=== PATIENT | male | born 1975 | race Caucasian/White ===

== ENCOUNTER 2018-07-20 22:35 | Inpatient (IN) | payer OTHER ==
[2018-07-20] MEDS ORDERED: ONDANSETRON 4 MG/2 ML VIAL IVPUSH ONE (23:18)
[2018-07-20] MEDS ORDERED: SODIUM CHLORIDE 0.9% 1000 ML INFUS.BAG IV ONE (23:18)
[2018-07-20] MEDS ORDERED: ACETAMINOPHEN 1000 MG/100 ML VIAL (NON FORMULARY) IVPB ONE (23:19)
[2018-07-20] MEDS ORDERED: ACETAMINOPHEN INJECTION 100 ML IVPB ONE (23:35)
[2018-07-20] MEDS ORDERED: ONDANSETRON 4 MG/2 ML VIAL ONE (23:36)
--- NOTE | 2018-07-20 23:37 | PDOC ---
History of Present Illness - General Chief Complaint: Pain, Acute Stated Complaint: ABDOMINAL PAIN, NAUSEA Time Seen by Provider: 07/20/18 23:12 History Source: Patient Exam Limitations: No Limitations - History of Present Illness Initial Comments: 07/20/18 23:32 The patient is a 42M with no PMH (does not follow with PCP) who presents to the ER with complaints of abdominal pain. The pt states that he was sleeping when he was woken up by a sudden onset sharp, RUQ and epigastric abdominal pain which is constant and worsening, not associated with any exacerbating or alleviating factors. The pt states that the pain radiates to his back and is a 10/10. He also admits to nausea and chills. He denies fevers, CP, SOB, hematuria , dysuria, and discharge. Past History - Past Medical History Allergies/Adverse Reactions: Allergies Allergy/AdvReac Type Severity Reaction Status Date / Time No Known Allergies Allergy Verified 07/20/18 22:53 Home Medications: Ambulatory Orders Oxycodone HCl/Acetaminophen [Percocet 5-325 mg Tablet] 1 combo PO Q4H PRN #0 tablet 12/15/13 COPD: No - Immunization History Immunization Up to Date: Yes - Suicide/Smoking/Psychosocial Hx Smoking History: Never smoked Hx Alcohol Use: No Drug/Substance Use Hx: No Hx Substance Use Treatment: No Review of Systems - Review of Systems Able to Perform ROS?: Yes Comments:: 07/20/18 23:33 GENERAL/CONSTITUTIONAL: Positive for chills. No fever. No weakness. HEAD, EYES, EARS, NOSE AND THROAT: No change in vision. No ear pain or discharge. No sore throat. CARDIOVASCULAR: No chest pain, palpitations, or lightheadedness. RESPIRATORY: No cough, wheezing, shortness of breath, or hemoptysis. GASTROINTESTINAL: Positive for nausea and abdominal pain. No vomiting, diarrhea , or constipation. GENITOURINARY: No dysuria, frequency, hematuria, or change in urination. MUSCULOSKELETAL: No joint or muscle swelling or pain. No neck or back pain. SKIN: No rash or lesions. NEUROLOGIC: No headache, numbness, tingling, focal weakness, loss of consciousness, or change in strength/sensation. Is the patient limited Polish proficient: No *Physical Exam - Vital Signs Last Vital Signs Temp Pulse Resp BP Pulse Ox 98.2 F 73 16 146/90 99 07/20/18 22:53 07/20/18 22:53 07/20/18 22:53 07/20/18 22:53 07/20/18 22:53 - Physical Exam Comments: 07/20/18 23:34 GENERAL: Well developed, well nourished. Awake and alert. No acute distress. HEENT: Normocephalic, atraumatic. Hearing grossly normal. Moist mucous membranes. PERRLA, EOMI. No conjunctival pallor. Sclera are non-icteric. NECK: Supple. Full ROM. CARDIOVASCULAR: Regular rate and rhythm. No murmurs, rubs, or gallops. PULMONARY: No evidence of respiratory distress. Lungs clear to auscultation bilaterally. No wheezing, rales or rhonchi. ABDOMINAL: Soft. TTP over RUQ and epigastrium. +De Leon's sign. Non-distended. No rebound or guarding. GENITOURINARY: No CVA tenderness bilaterally. MUSCULOSKELETAL: Normal range of motion at all joints. No bony deformities or tenderness. EXTREMITIES: No cyanosis. No clubbing. No edema. No calf tenderness or swelling. SKIN: Warm and dry. Normal capillary refill. No rashes. No jaundice. NEUROLOGICAL: Alert, awake, appropriate. Cranial nerves 2-12 grossly intact. Normal speech. Gait is normal without ataxia. PSYCHIATRIC: Cooperative. Good eye contact. Appropriate mood and affect. ED Treatment Course - LABORATORY CBC & Chemistry Diagram: 07/20/18 23:20 07/20/18 23:20 - RADIOLOGY Radiology Studies Ordered: Category Date Time Status CHEST X-RAY PORTABLE* [RAD] Stat Radiology 07/20/18 23:19 Ordered ABDOMEN US -LIMITED [US] Stat Ultrasound 07/20/18 23:20 Ordered Medical Decision Making - Medical Decision Making 07/20/18 23:35 The patient is a 42M with no PMH who presents with acute onset RUQ abdominal pain radiating to his back concerning for pancreatitis, cholecystitis, and ascending cholangitis. Labs sent and RUQ U/S ordered. Giving pain and nausea treatment. Pt well appearing but uncomfortable. Will monitor closely. 07/21/18 01:23 Pt did not tolerate PO challenge and requires more pain medication. US shows gallbladder wall thickening to 4mm with cholelithiasis. 07/21/18 03:59 Case d/w Dr. Aly who will see the patient in the morning. Pt endorsed to Dr. Triana for admission under Dr. Bowles. *DC/Admit/Observation/Transfer Diagnosis at time of Disposition: Cholelithiasis Qualifiers: Cholelithiasis location: other site Biliary obstruction: without biliary obstruction Qualified Code(s): K80.80 - Other cholelithiasis without obstruction - Discharge Dispostion Condition at time of disposition: Guarded Decision to Admit order: Yes - Referrals - Patient Instructions - Post Discharge Activity
[2018-07-20 23:42] LABS: BASO % 0.3 % (0-2.0); EOS % 0.9 % (0-4.5); HEMATOCRIT 40.8 % (35.4-49); HEMOGLOBIN 14.2 GM/dL (11.7-16.9); LYMPH % 16.3 % (8-40); MCH 32.6 pg (25.7-33.7); MCHC 34.9 g/dl (32.0-35.9); MEAN CELL VOLUME 93.2 fl (80-96); MEAN PLT VOLUME 8.2 fl (7.5-11.1); MONO % 4.9 % (3.8-10.2); NEUT % 77.6 % (42.8-82.8); PLATELET COUNT 245 K/MM3 (134-434); RBC 4.37 M/mm3 (4.00-5.60); RDW 12.4 % (11.9-15.9); WHITE BLOOD COUNT 7.3 K/mm3 (4.0-10.0)
[2018-07-20 23:53] LABS: URINE APPEARANCE CLEAR; URINE BILIRUBIN NEGATIVE (<2.0 mg/dL); URINE COLOR LTYELLOW; URINE GLUCOSE (UA) 3+ (NEGATIVE); URINE KETONE NEGATIVE (NEGATIVE); URINE LEUK ESTERASE NEGATIVE (NEGATIVE); URINE NITRITE NEGATIVE (NEGATIVE); URINE PROTEIN NEGATIVE (NEGATIVE); URINE UROBILINOGEN NEGATIVE mg/dL (0.2-1.0)
--- NOTE | 2018-07-20 23:53 | PDOC ---
Attending Attestation - HPI HPI: 07/21/18 00:39 The patient is a 42 year old male, with no significant past medical history, who presents to the emergency department with, sudden onset sharp, right upper quadrant pain radiating to his back. He further describes it as constant and 10/ 10. <Jennifer Perkins - Last Filed: 07/21/18 00:39> - Resident Resident Name: Hamilton Dean - ED Attending Attestation I have performed the following: I have examined & evaluated the patient, The case was reviewed & discussed with the resident, I agree w/resident's findings & plan - Physicial Exam PE: 07/25/18 19:56 Agree with resident exam. - Medical Decision Making 07/21/18 00:14 Pt comes with abd pain that woke him Pain is right sided. Pt has a + escobar's sign on exam, but he is afebrile and he has normal labs, and normal lipase and LFTs. He has normal urine. He has no hx of DM, however, his glc id [id number] and he has 3+ glc in his urine. 07/21/18 00:18 CXR normal <Lisette Canada - Last Filed: 07/25/18 19:57> Attestations - Attestations 07/21/18 00:40 Documentation prepared by Jennifer Perkins, acting as medical records supervisor for Lisette Canada MD. <Jennifer Perkins - Last Filed: 07/21/18 00:39>
[2018-07-20 23:54] LABS: INR 1.02 (0.83-1.09)
[2018-07-21 00:06] LABS: ALK PHOS 74 U/L (45-117); ANION GAP 7 MMOL/L (8-16); BILIRUBIN,TOTAL 0.2 mg/dL (0.2-1); BLOOD UREA NITROGEN 19 mg/dL (7-18); CALCIUM 8.8 mg/dL (8.5-10.1); CHLORIDE 106 mmol/L (98-107); CO2 27 mmol/L (21-32); CREATININE 0.8 mg/dL (0.55-1.3); GLUCOSE,RANDOM 154 mg/dL (74-106); LIPASE 168 U/L (73-393); POTASSIUM 3.7 mmol/L (3.5-5.1); SGOT/AST 16 U/L (15-37); SGPT/ALT 24 U/L (13-61); SODIUM 140 mmol/L (136-145); TOT PROT 7.4 g/dl (6.4-8.2)
[2018-07-21] MEDS ORDERED: ONDANSETRON 4 MG/2 ML VIAL IVPUSH ONE (02:44)
[2018-07-21] MEDS ORDERED: morphine CARPU-JECT 4 MG/1 ML DISP.SYRIN IVPUSH ONE (02:45)
[2018-07-21] MEDS ORDERED: morphine SULFATE 4 MG/ML VIAL ONE (02:50)
[2018-07-21] MEDS ORDERED: ONDANSETRON 4 MG/2 ML VIAL ONE (02:51)
[2018-07-21] MEDS ORDERED: SODIUM CHLORIDE 1,000 ML IV SCH (03:00)
[2018-07-21] MEDS ORDERED: ONDANSETRON 4 MG/2 ML VIAL IVPUSH PRN (04:49)
[2018-07-21] MEDS ORDERED: morphine SULFATE 4 MG/ML VIAL IVPUSH PRN (04:49)
--- NOTE | 2018-07-21 04:55 | PN ---
Teaching Attending Note Name of Resident: Marcia Galloway ATTENDING PHYSICIAN STATEMENT I saw and evaluated the patient. I reviewed the resident's note and discussed the case with the resident. I agree with the resident's findings and plan as documented. SUBJECTIVE: Mr. Martínez is a 42 y/o Male with no PMH aside from appendectomy and hernia repair who presents to the ER for 1 day or worsening abdominal pain. Nothing is making it better or worse. He had it today after a large meal, R- sided prediliction. No constitutional sx. He tried to go to sleep but the pain progresed so he came to the ER. He had similar pain several years ago but didn' t get it worked up and he had no explanation. No wbc, no fever, hemodynamics stable. Resting comfortably in bed after being given morphine. ER phoned rakesh who will see him in the morning. Will monitor him on med surg floor with surgical consult. 10 sys ROS done and negative aside from HPI PMH and PSH reviewed and are per chart FH asked and noncontributory Socially he is employed and has no known disability and denies tobacco, drugs, or alcohol. OBJECTIVE: VSS; labs and imaging reviewed NAD AAOx3 resting comfortbaly in bed RRR s1/2 no mgr Slightly tender but is post morphine; no escobar's at this time, nondistende, no organomegaly Lungs CTAB without focal consolidation CN2-12 grossly intact without any FNDs US reviewed; final report pending. Prelim read shows normal CBD, 4mm wall, no jackeline cholecystitis ASSESSMENT AND PLAN: Mr. Rao is a 42 y/o HM presenting with abdominal pain after a fatty meal that is suspicious for symptomatic cholelithiasis. Surgery will see him in the morning. 1) Sympomatic cholelithiaisis -No fever or WBC; no pericholecystic fluid seen on prelim scan so will hold off on abx. Wall thickening noted. -Surgical consult in AM -Morphine and Zofran PRN, monitor on med surg floor -LR@@100 for maintenance while NPO. -Appreciate surgical consult; medicine will follow. 2) Glucosuria with mild hyperglycemia -Suspicious for potential underlying DM -Check A1c and followup with PCP FENA -LR@100 -Monitor/replete PRN -NPO for now -As tolerated Full Code
--- NOTE | 2018-07-21 05:07 | HP ---
CHIEF COMPLAINT: RUQ pain PCP: none HISTORY OF PRESENT ILLNESS: Patient is a 42 y/o male with no past medical history and surgical history pertinent for appendectomy and hernia repair who presents with RUQ pain. He states the pain began midday yesterday. He described the pain as sharp and radiating to his back. He states he felt short of breath due to the pain. He has only had this pain once in the past about three months ago and does not note it with any food or alcohol use. Patient ate a spicy meal before the pain on Saturday. He reports he took tylenol at home, but it did not help the pain. Patient denies alcohol use. Patient states he is nauseous but did not have any episodes of vomiting. Patient denies diarrhea, constipation, dysuria, fever, chills,. or blurry vision. He denies any recent sick contacts. ER course was notable for: (1) morphine (2) (3) Recent Travel: denies PAST MEDICAL HISTORY: denies PAST SURGICAL HISTORY: appendectomy (2013), hernia repair Social History: Smoking: denies Alcohol:denies Drugs: Family History: Allergies No Known Allergies Allergy (Verified 07/20/18 22:53) HOME MEDICATIONS: REVIEW OF SYSTEMS CONSTITUTIONAL: Absent: fever, chills, diaphoresis, generalized weakness, malaise, loss of appetite, weight change HEENT: Absent: rhinorrhea, nasal congestion, throat pain, throat swelling, difficulty swallowing, mouth swelling, ear pain, eye pain, visual changes CARDIOVASCULAR: chest pain ( described as refereed pain) Absent: , syncope, palpitations, irregular heart rate, lightheadedness, peripheral edema RESPIRATORY: shortness of breath Absent: cough, dyspnea with exertion, orthopnea, wheezing, stridor, hemoptysis GASTROINTESTINAL: abdominal pain, nausea, Absent: abdominal distension, vomiting, diarrhea, constipation, melena, hematochezia GENITOURINARY: Absent: dysuria, frequency, urgency, hesitancy, hematuria, flank pain, genital pain MUSCULOSKELETAL: Absent: myalgia, arthralgia, joint swelling, back pain, neck pain SKIN: Absent: rash, itching, pallor HEMATOLOGIC/IMMUNOLOGIC: Absent: easy bleeding, easy bruising, lymphadenopathy, frequent infections ENDOCRINE: Absent: unexplained weight gain, unexplained weight loss, heat intolerance, cold intolerance NEUROLOGIC: Absent: headache, focal weakness or paresthesias, dizziness, unsteady gait, seizure, mental status changes, bladder or bowel incontinence PSYCHIATRIC: Absent: anxiety, depression, suicidal or homicidal ideation, hallucinations. PHYSICAL EXAMINATION Vital Signs - 24 hr 07/20/18 22:53 Temperature 98.2 F Pulse Rate 73 Respiratory 16 Rate Blood Pressure 146/90 O2 Sat by Pulse 99 Oximetry (%) GENERAL: Awake, alert, and fully oriented, in no acute distress. HEAD: Normal with no signs of trauma. EYES: Pupils equal EARS, NOSE, THROAT: Moist mucous membranes. LUNGS: Breath sounds equal, clear to auscultation bilaterally. No wheezes, and no crackles. No accessory muscle use. HEART: Regular rate and rhythm, normal S1 and S2 without murmur, rub or gallop. ABDOMEN: tenderness at RUQ, positive murphys sign, positive rebound tenderness MUSCULOSKELETAL: Normal range of motion at all joints. LOWER EXTREMITIES: 2+ pulses, warm, well-perfused. No calf tenderness. No peripheral edema. NEUROLOGICAL: Cranial nerves II-XII intact. Normal speech. PSYCHIATRIC: Cooperative. Good eye contact. Appropriate mood and affect. SKIN: Warm, dry, normal turgor, no rashes or lesions noted, normal capillary refill. Laboratory Results - last 24 hr CBC, BMP 07/20/18 23:20 07/20/18 23:20 Urine Test Results Urine Color Ltyellow 07/20/18 23:35 Urine Appearance Clear 07/20/18 23:35 Urine pH 6.0 (5.0-8.0) 07/20/18 23:35 Ur Specific [place] 1.021 (1.010-1.035) 07/20/18 23:35 Urine Protein Negative (NEGATIVE) 07/20/18 23:35 Urine Glucose (UA) 3+ (NEGATIVE) H 07/20/18 23:35 Urine Ketones Negative (NEGATIVE) 07/20/18 23:35 Urine Blood Negative (NEGATIVE) 07/20/18 23:35 Urine Nitrite Negative (NEGATIVE) 07/20/18 23:35 Urine Bilirubin Negative (<2.0 mg/dL) 07/20/18 23:35 Ur Leukocyte Esterase Negative (NEGATIVE) 07/20/18 23:35 ASSESSMENT/PLAN: Patient is a 42 y/o male with no past medical history and surgical history pertinent for appendectomy and hernia repair who presents with cholelithasis. #acute cholelithiasis - US: cholelithias, thickened gallbladder 4 mm, no evidence of pericholecystic fluid - ED spoke with Dr. Aly, she will see patient in the morning and determine management - patient NPO - LR @ 100 - morphine 4mg q4prn - zofran 4 mg q6h prn ( QTC: 438) #glycosuria - no history of DM - f/u A1C - f/u with PCP outpatient as appropriate Visit type - Emergency Visit Emergency Visit: Yes ED Registration Date: 07/21/18 Care time: The patient presented to the Emergency Department on the above date and was hospitalized for further evaluation of their emergent condition. - New Patient This patient is new to me today: Yes Date on this admission: 07/21/18 - Critical Care Critical Care patient: No
[2018-07-21] MEDS: LACTATED RINGERS SOLUTION 1,000 ML IV SCH (05:50)
--- NOTE | 2018-07-21 09:49 | PN ---
Physical Exam: SUBJECTIVE: Patient seen and examined in the ER- no acute events overnight. states that he is still having some pain states its a 3/10 and is having some slight nausea but no vomiting. he denies any fevers or chills. Dr. Aly will be seeing him this am to evaluate. OBJECTIVE: Vital Signs Period Temp Pulse Resp BP Sys/Tariq Pulse Ox Last 24 Hr 98.2 F-98.2 F 63-73 16-18 119-146/66-90 99-100 GENERAL: The patient is awake, alert, and fully oriented, in no acute distress. EYES:no scleral icterus NECK: no JVD, no lymphadenopathy LUNGS: Breath sounds equal, clear to auscultation bilaterally, no wheezes, no crackles, no accessory muscle use. HEART: Regular rate and rhythm, S1, S2 without murmur, rub or gallop. ABDOMEN: Soft, + RUQ tenderness, non-distended EXTREMITIES: 2+ pulses, warm, well-perfused, no edema. PSYCH: Normal mood, normal affect. SKIN: Warm, dry, normal turgor, no rashes or lesions noted Laboratory Results - last 24 hr 07/20/18 07/20/18 07/20/18 23:20 23:20 23:20 WBC 7.3 RBC 4.37 Hgb 14.2 Hct 40.8 MCV 93.2 MCH 32.6 MCHC 34.9 RDW 12.4 Plt Count 245 D MPV 8.2 Absolute Neuts (auto) 5.7 Neutrophils % 77.6 Lymphocytes % 16.3 D Monocytes % 4.9 Eosinophils % 0.9 D Basophils % 0.3 Nucleated RBC % 0 PT with INR 12.00 INR 1.02 Sodium 140 Potassium 3.7 Chloride 106 Carbon Dioxide 27 Anion Gap 7 L BUN 19 H Creatinine 0.8 Creat Clearance w eGFR > 60 Random Glucose 154 H Hemoglobin A1c % Calcium 8.8 Total Bilirubin 0.2 AST 16 ALT 24 Alkaline Phosphatase 74 Creatine Kinase 173 Creatine Kinase Index 0.8 CK-MB (CK-2) 1.5 Troponin I < 0.02 Total Protein 7.4 Albumin 4.0 Lipase 168 Urine Color Urine Appearance Urine pH Ur Specific [place] Urine Protein Urine Glucose (UA) Urine Ketones Urine Blood Urine Nitrite Urine Bilirubin Urine Urobilinogen Ur Leukocyte Esterase Blood Type Antibody Screen 07/20/18 07/20/18 07/21/18 23:20 23:35 07:30 WBC RBC Hgb Hct MCV MCH MCHC RDW Plt Count MPV Absolute Neuts (auto) Neutrophils % Lymphocytes % Monocytes % Eosinophils % Basophils % Nucleated RBC % PT with INR INR Sodium Potassium Chloride Carbon Dioxide Anion Gap BUN Creatinine Creat Clearance w eGFR Random Glucose Hemoglobin A1c % 5.9 Calcium Total Bilirubin AST ALT Alkaline Phosphatase Creatine Kinase Creatine Kinase Index CK-MB (CK-2) Troponin I Total Protein Albumin Lipase Urine Color Ltyellow Urine Appearance Clear Urine pH 6.0 Ur Specific [place] 1.021 Urine Protein Negative Urine Glucose (UA) 3+ H Urine Ketones Negative Urine Blood Negative Urine Nitrite Negative Urine Bilirubin Negative Urine Urobilinogen Negative Ur Leukocyte Esterase Negative Blood Type O POSITIVE Antibody Screen Negative 07/21/18 07:30 WBC RBC Hgb Hct MCV MCH MCHC RDW Plt Count MPV Absolute Neuts (auto) Neutrophils % Lymphocytes % Monocytes % Eosinophils % Basophils % Nucleated RBC % PT with INR INR Sodium Potassium Chloride Carbon Dioxide Anion Gap BUN Creatinine Creat Clearance w eGFR Random Glucose Hemoglobin A1c % Calcium Total Bilirubin AST ALT Alkaline Phosphatase Creatine Kinase Creatine Kinase Index CK-MB (CK-2) Troponin I Total Protein Albumin Lipase Urine Color Urine Appearance Urine pH Ur Specific [place] Urine Protein Urine Glucose (UA) Urine Ketones Urine Blood Urine Nitrite Urine Bilirubin Urine Urobilinogen Ur Leukocyte Esterase Blood Type O POSITIVE Antibody Screen Negative Active Medications Generic Name Dose Route Start Last Admin Trade Name Freq PRN Reason Stop Dose Admin Sodium Chloride 1,000 mls @ 150 mls/hr 07/21/18 03:00 07/21/18 03:02 Normal Saline - IV 150 mls/hr ASDIR DELIA Administration Lactated Ringer's 1,000 mls @ 100 mls/hr 07/21/18 05:00 07/21/18 05:50 Lactated Ringers Solution IV 100 mls/hr ASDIR DELIA Administration Morphine Sulfate 4 mg 07/21/18 04:49 Morphine Sulfate IVPUSH Q4H PRN PAIN LEVEL 7 - 10 Ondansetron HCl 4 mg 07/21/18 04:49 Zofran Injection IVPUSH Q6H PRN NAUSEA ASSESSMENT/PLAN: Patient is a 42 y/o male with no past medical history and surgical history pertinent for appendectomy and hernia repair who presents with cholelithiasis #acute cholelithiasis - US: cholelithias, thickened gallbladder 4 mm, no evidence of pericholecystic fluid - patient going for cholecystectomy today -f/u surgery recs - patient NPO for potential procedure - morphine 4mg q4prn - zofran 4 mg q6h prn #glycosuria - no history of DM - HBA - f/u with PCP outpatient as appropriate F/E/N LR @100mls/hr replete electrolytes when needed NPO PPX: SCD's Problem List - Problems (1) Cholelithiasis Code(s): K80.20 - CALCULUS OF GALLBLADDER W/O CHOLECYSTITIS W/O OBSTRUCTION Qualifiers: Cholelithiasis location: other site Biliary obstruction: without biliary obstruction Qualified Code(s): K80.80 - Other cholelithiasis without obstruction Visit type - Emergency Visit Emergency Visit: Yes ED Registration Date: 07/21/18 Care time: The patient presented to the Emergency Department on the above date and was hospitalized for further evaluation of their emergent condition. - New Patient This patient is new to me today: Yes Date on this admission: 07/21/18 - Critical Care Critical Care patient: No
--- NOTE | 2018-07-21 10:28 | EKG ---
Test Reason : Blood Pressure : / mmHG Vent. Rate : 072 BPM Atrial Rate : 072 BPM P-R Int : 162 ms QRS Dur : 100 ms QT Int : 400 ms P-R-T Axes : 027 026 011 degrees QTc Int : 438 ms NORMAL SINUS RHYTHM NORMAL ECG NO PREVIOUS ECGS AVAILABLE Confirmed by BRITANY ANGEL MD ([id number]) on 07/21/2018 10:28:12 AM Referred By: Confirmed By:BRITANY ANGEL MD
[2018-07-21 10:59] LABS: HEMATOCRIT 38.4 % (35.4-49); HEMOGLOBIN 13.3 GM/dL (11.7-16.9); LYMPH % 21.3 % (8-40); MCH 32.1 pg (25.7-33.7); MCHC 34.6 g/dl (32.0-35.9); MEAN CELL VOLUME 92.8 fl (80-96); MEAN PLT VOLUME 7.9 fl (7.5-11.1); NEUT % 68.3 % (42.8-82.8); PLATELET COUNT 243 K/MM3 (134-434); RBC 4.14 M/mm3 (4.00-5.60); RDW 12.4 % (11.9-15.9); WHITE BLOOD COUNT 7.7 K/mm3 (4.0-10.0)
[2018-07-21 11:00] LABS: BASO % 0.3 % (0-2.0); EOS % 0.9 % (0-4.5); MONO % 9.2 % (3.8-10.2)
[2018-07-21 11:39] LABS: ALBUMIN 3.5 g/dl (3.4-5.0); ALK PHOS 64 U/L (45-117); ANION GAP 5 MMOL/L (8-16); BILIRUBIN,TOTAL 0.4 mg/dL (0.2-1); BLOOD UREA NITROGEN 8 mg/dL (7-18); CALCIUM 8.6 mg/dL (8.5-10.1); CHLORIDE 109 mmol/L (98-107); CO2 28 mmol/L (21-32); CREATININE 0.8 mg/dL (0.55-1.3); GLUCOSE,RANDOM 92 mg/dL (74-106); LIPASE 167 U/L (73-393); POTASSIUM 3.6 mmol/L (3.5-5.1); SGOT/AST 19 U/L (15-37); SGPT/ALT 21 U/L (13-61); SODIUM 142 mmol/L (136-145); TOT PROT 6.6 g/dl (6.4-8.2)
--- NOTE | 2018-07-21 15:09 | CONSULT ---
Consult Consult Specialty:: General Surgery Referred by:: Dr. Dean Reason for Consultation:: symptomatic gallstone in neck of gallbladder - History of Present Illness Chief Complaint: RUQ pain, nausea History of Present Illness: 42yo M with no PMD, no sig PMH, s/p lap appy and left inguinal hernia repair, presented yesterday to ER with acute RUQ pain associated with nausea and constipation but no fever or chills (had mild last week with possible brief illness). He had similar pain about 3 months ago but it went away without medical attention. This time it was worse and radiated toward the back as well. He had eaten spicy, greasy food couple hours before the pain initially started, it got better, then woke him from sleep and was not relieved with Tylenol. In ER , he was afebrile, with normal wbc and LFTs, lipase, and US showed gallbladder with mild wall thickening, stone in neck, and no ductal dilation. He had initially vomited a small liquid po trial, prompting further ER workup. He has been NPO, with IVF, and was admitted to medicine. Surgery is asked to assess. He is seen in ER holding area, resting comfortably. He reports his pain is better after morphine, which made him very sleepy, though he still has a bit of tenderness in RUQ. He had been feeling like he needed to use the bathroom yesterday and was unable to have a BM, but he did have a normal one for him Saturday morning. He notes that he sometimes has to urinate again shortly after doing so, and is not sure why he keeps having to go more than once. - History Source History Provided By: Patient Limitations to Obtaining History: No Limitations - Past Medical History Cardio/Vascular: No: HTN Pulmonary: No: Asthma ENT: Yes: Allergic Rhinitis Endocrine: No: Diabetes Mellitus Additional Medical History: denies - Past Surgical History Past Surgical History: Yes: Appendectomy (laparoscopic 5 yrs ago), Hernia Repair (left inguinal 15 yrs ago) - Alcohol/Substance Use Hx Alcohol Use: Yes (occasional) History of Substance Use: reports: None - Smoking History Smoking history: Never smoked - Social History Usual Living Arrangement: With Spouse ADL: Independent Occupation: sorting farhad for distribution Home Medications - Allergies Allergies/Adverse Reactions: Allergies Allergy/AdvReac Type Severity Reaction Status Date / Time No Known Allergies Allergy Verified 07/20/18 22:53 - Home Medications Home Medications: Ambulatory Orders NK [No Known Home Medication] 07/21/18 Home Medications (free text): takes vitamins and prn tylenol Family Disease History - Family Disease History Family Disease History: Other: Father (htn), Mother (gastritis) Review of Systems - Review of Systems Constitutional: reports: Chills, Fever Eyes: reports: Other (reddened eyes). denies: Blurred Vision, Recent Change in Vision HENT: reports: Difficult Swallowing (couple weeks ago, better now), Nasal Congestion, Throat Pain Neck: denies: Swollen Glands, Tenderness Cardiovascular: denies: Chest Pain, Palpitations Respiratory: reports: SOB (occasionally when ill). denies: Cough, SOB on Exertion Gastrointestinal: reports: Abdominal Pain (with hpi), Constipation (with hpi), Nausea (with hpi). denies: Diarrhea, Vomiting Genitourinary: reports: Frequency (with some incomplete emptying?). denies: Burning, Dysuria Musculoskeletal: reports: Back Pain (from work sometimes). denies: Joint Pain, Muscle Pain Integumentary: denies: Change in Color, Rash Neurological: reports: Headache. denies: Dizziness Psychiatric: denies: Anxiety, Depression Physical Exam Vital Signs: Vital Signs Temperature 98.2 F 07/21/18 06:25 Pulse Rate 79 07/21/18 11:58 Respiratory Rate 18 07/21/18 11:58 Blood Pressure 112/70 07/21/18 11:58 O2 Sat by Pulse Oximetry (%) 98 07/21/18 11:58 Constitutional: Yes: Well Nourished, No Distress, Calm Eyes: Yes: Conjunctiva Clear, EOM Intact. No: Sclera Icterus HENT: Yes: Atraumatic, Normocephalic Neck: Yes: Supple, Trachea Midline Cardiovascular: Yes: Regular Rate and Rhythm Respiratory: Yes: Regular, CTA Bilaterally Gastrointestinal: Yes: Normal Bowel Sounds, Soft, Tenderness (RUQ no maria m/ guarding, also mild referred from LUQ), Tenderness, Epigastrium (less than RUQ) , Other (healed laparoscopic scars including LLQ, healed LIHR scar). No: Tenderness, Rebound ...Rectal Exam: Yes: Deferred Renal/: Yes: CVA Tenderness - Right (minimal). No: CVA Tenderness - Left Musculoskeletal: No: Joint Stiffness, Joint Swelling Extremities: No: Cool, Cyanosis Edema: No Peripheral Pulses WNL: Yes Integumentary: Yes: Tattoos. No: Jaundice, Rash Neurological: Yes: Alert, Oriented Psychiatric: Yes: Alert, Oriented Labs: CBC, BMP 07/21/18 10:50 07/21/18 10:50 CMP Sodium 142 mmol/L (136-145) 07/21/18 10:50 Potassium 3.6 mmol/L (3.5-5.1) 07/21/18 10:50 Chloride 109 mmol/L (98-107) H 07/21/18 10:50 Carbon Dioxide 28 mmol/L (21-32) 07/21/18 10:50 Anion Gap 5 MMOL/L (8-16) L 07/21/18 10:50 BUN 8 mg/dL (7-18) 07/21/18 10:50 Creatinine 0.8 mg/dL (0.55-1.3) 07/21/18 10:50 Creat Clearance w eGFR > 60 (>60) 07/21/18 10:50 Random Glucose 92 mg/dL (74-106) 07/21/18 10:50 Hemoglobin A1c % 5.9 % (4.2-6.3) 07/21/18 07:30 Calcium 8.6 mg/dL (8.5-10.1) 07/21/18 10:50 Total Bilirubin 0.4 mg/dL (0.2-1) 07/21/18 10:50 AST 19 U/L (15-37) 07/21/18 10:50 ALT 21 U/L (13-61) 07/21/18 10:50 Alkaline Phosphatase 64 U/L (45-117) 07/21/18 10:50 Creatine Kinase 173 IU/L (26-308) 07/20/18 23:20 Creatine Kinase Index 0.8 % (0.0-5.0) 07/20/18 23:20 CK-MB (CK-2) 1.5 ng/mL (0.5-3.6) 07/20/18 23:20 Troponin I < 0.02 ng/ml (0.00-0.05) 07/20/18 23:20 Total Protein 6.6 g/dl (6.4-8.2) 07/21/18 10:50 Albumin 3.5 g/dl (3.4-5.0) 07/21/18 10:50 Lipase 167 U/L (73-393) 07/21/18 10:50 INR, PTT INR 1.02 (0.83-1.09) 07/20/18 23:20 Urine Test Results Urine Color Ltyellow 07/20/18 23:35 Urine Appearance Clear 07/20/18 23:35 Urine pH 6.0 (5.0-8.0) 07/20/18 23:35 Ur Specific [place] 1.021 (1.010-1.035) 07/20/18 23:35 Urine Protein Negative (NEGATIVE) 07/20/18 23:35 Urine Glucose (UA) 3+ (NEGATIVE) H 07/20/18 23:35 Urine Ketones Negative (NEGATIVE) 07/20/18 23:35 Urine Blood Negative (NEGATIVE) 07/20/18 23:35 Urine Nitrite Negative (NEGATIVE) 07/20/18 23:35 Urine Bilirubin Negative (<2.0 mg/dL) 07/20/18 23:35 Ur Leukocyte Esterase Negative (NEGATIVE) 07/20/18 23:35 Imaging - Results Ultrasound: Report Reviewed, Image Reviewed (images reviewed - stone in neck of gallbladder, slightly thickened wall, no pericholecystic fluid, cbd not dilated) Problem List - Problems (1) Calculus of gallbladder without cholecystitis without obstruction Assessment/Plan: admitted to medicine NPO/IVF pain meds prn, would use nonnarcotics first line trend labs no need for antibiotics prior to OR at this time Discussed with patient risks, benefits and alternatives of laparoscopic possible open cholecystectomy, including but not limited to bleeding, infection , injury to adjacent structures, leak or injury, intraabdominal abscess, incisional hernia, need for further procedures, ; alternatives include delayed or no surgery - risks of this include recurrence of biliary colic, cholecystitis, pancreatitis, cholangitis and attendant consequences. Patient desires to proceed with operation - will take to OR for above when room available, today or tomorrow. Informed consent signed for same. Discussed with Dr. Rojas. Code(s): K80.20 - CALCULUS OF GALLBLADDER W/O CHOLECYSTITIS W/O OBSTRUCTION (2) RUQ pain Code(s): R10.11 - RIGHT UPPER QUADRANT PAIN (3) Nausea alone Code(s): R11.0 - NAUSEA
--- NOTE | 2018-07-21 17:24 | PN ---
Teaching Attending Note Name of Resident: Rachael Rojas ATTENDING PHYSICIAN STATEMENT I saw and evaluated the patient. I reviewed the resident's note and discussed the case with the resident. I agree with the resident's findings and plan as documented. SUBJECTIVE:c/o dizzyness and hunger. dnies CP SOB, fever, chills, N/V/c/D no complications with anesthesia in the past OBJECTIVE: Last Vital Signs Temp Pulse Resp BP Pulse Ox 98.2 F 68 18 125/65 98 07/21/18 06:25 07/21/18 15:58 07/21/18 15:58 07/21/18 15:58 07/21/18 15:58 General NAD CV S1 S2 RRR no murmur/rub/glalop Lungs CTA B/L no wheezing/rales/rhonchi abdomen soft +RUQ tenderness +escobar sign ASSESSMENT AND PLAN: 42yo M with no PMH presented with RUQ pain 1. Biliary colic- hemodynamically stable. NPO for laprascopic cholecystectomy. IVF, pain and nausea control. Surgery on board 2. Glucosuria- concern for DM. A1c pending 3. DVT ppx- EAM
[2018-07-21 20:00] VITALS: BMI 30.3
[2018-07-22] MEDS ORDERED: PT OWN MED DRAWER 7, Y5N ONE ×2 (05:52→18:04)
[2018-07-22] MEDS: LACTATED RINGERS SOLUTION 1,000 ML IV SCH ×3 (06:33→16:19)
[2018-07-22 07:22] LABS: HEMATOCRIT 42.1 % (35.4-49); HEMOGLOBIN 13.7 GM/dL (11.7-16.9); MCH 30.4 pg (25.7-33.7); MCHC 32.5 g/dl (32.0-35.9); MEAN CELL VOLUME 93.7 fl (80-96); MEAN PLT VOLUME 8.1 fl (7.5-11.1); PLATELET COUNT 230 K/MM3 (134-434); RDW 12.6 % (11.9-15.9); WHITE BLOOD COUNT 5.3 K/mm3 (4.0-10.0)
[2018-07-22 07:31] LABS: ANION GAP 10 MMOL/L (8-16); BLOOD UREA NITROGEN 9 mg/dL (7-18); CALCIUM 8.6 mg/dL (8.5-10.1); CHLORIDE 106 mmol/L (98-107); CO2 25 mmol/L (21-32); CREATININE 0.7 mg/dL (0.55-1.3); GLUCOSE,RANDOM 76 mg/dL (74-106); MAGNESIUM 1.9 mg/dL (1.8-2.4); PHOSPHOROUS 3.2 mg/dL (2.5-4.9); POTASSIUM 3.8 mmol/L (3.5-5.1); SODIUM 142 mmol/L (136-145)
[2018-07-22] MEDS ORDERED: ONDANSETRON 4 MG/2 ML VIAL IVPUSH PRN ×2 (10:52→12:53)
[2018-07-22] MEDS ORDERED: LACTATED RINGERS SOLUTION 1,000 ML IV SCH (11:00)
[2018-07-22] MEDS ORDERED: fentaNYL CITRATE 250 MCG/5 ML VIAL ONE (11:17)
[2018-07-22] MEDS ORDERED: PROPOFOL 20 ML ONE (11:18)
[2018-07-22] MEDS ORDERED: ROCURONIUM BROMIDE 50 MG/5 ML VIAL ONE (11:18)
[2018-07-22] MEDS ORDERED: ceFAZolin SODIUM 1 GM VIAL ONE (11:28)
[2018-07-22] MEDS ORDERED: cefOXitin SODIUM 1 GM VIAL (RESTRICTED TO ID) IVPB ONE (11:30)
[2018-07-22] MEDS ORDERED: CEFOXITIN SODIUM 2 GM IVPB ONE (11:32)
[2018-07-22] MEDS ORDERED: BUPIVACAINE HCL/PF 0.5% (5MG/ML) 10 ML VIAL IJ ONE (11:44)
[2018-07-22] MEDS ORDERED: DESFLURANE GAS 240 ML BOTTLE IH ONE (12:10)
[2018-07-22] MEDS ORDERED: BENZOIN TINCTURE SWABSTICK TP ONE (12:17)
[2018-07-22] MEDS ORDERED: GLYCOPYRROLATE 0.2 MG/1 ML VIAL ONE (12:19)
[2018-07-22] MEDS ORDERED: NEOSTIGMINE METHYLSULFATE 0.5 MG/1 ML - 10 ML MDV ONE (12:19)
--- NOTE | 2018-07-22 12:42 | OP ---
Operative Note - Note: Operative Date: 07/22/18 Pre-Operative Diagnosis: symptomatic cholelithiasis/impacted stone Operation: laparoscopic cholecystectomy Findings: distended gallbladder with edema, critical view obtained; stones palpable in gb Post-Operative Diagnosis: Same as Pre-op Surgeon: Tutu Aly [place] Blocking Operator: Chintan Thompson Anesthesiologist/MOLD CAPPER: Viv Ma Anesthesia: General, Local (20ml 0.5% marcaine) Specimens Removed: gallbladder to pathology Estimated Blood Loss (mls): 5 Fluid Volume Replaced (mls): 800 (crystalloid) Operative Report Dictated: Yes
[2018-07-22] MEDS ORDERED: ACETAMINOPHEN 1000 MG/100 ML VIAL (NON FORMULARY) IVPB ONE ×2 (12:45→12:53)
[2018-07-22] MEDS ORDERED: IBUPROFEN 600 MG TABLET (FP) PO SCH (15:00)
--- NOTE | 2018-07-22 15:30 | PN ---
Physical Exam: SUBJECTIVE: Patient seen and examined at bedside. no acute events overnight- patient had slight nausea with mild pain, rates it a 2/10. he denies any CP/SOB/ N/V fevers or chills OBJECTIVE: Vital Signs Period Temp Pulse Resp BP Sys/Tariq Pulse Ox Last 24 Hr 97.9 F-99.0 F 62-94 10-20 105-139/57-79 97-100 GENERAL: The patient is awake, alert, and fully oriented, in no acute distress. EYES: no scleral icterus. NECK: no JVD, no lymphadenopathy LUNGS:CTA B/L; no rales, rhonchi or wheezing HEART: Regular rate and rhythm, S1, S2 without murmur, rub or gallop. ABDOMEN: Soft, slight RUQ tenderness upon palpation EXTREMITIES: 2+ pulses, warm, well-perfused, no edema. PSYCH: Normal mood, normal affect. SKIN: Warm, dry, normal turgor, no rashes or lesions noted Laboratory Results - last 24 hr 07/22/18 07/22/18 06:10 06:10 WBC 5.3 RBC 4.50 Hgb 13.7 Hct 42.1 MCV 93.7 MCH 30.4 MCHC 32.5 RDW 12.6 Plt Count 230 MPV 8.1 Sodium 142 Potassium 3.8 Chloride 106 Carbon Dioxide 25 Anion Gap 10 BUN 9 Creatinine 0.7 Creat Clearance w eGFR > 60 Random Glucose 76 Calcium 8.6 Phosphorus 3.2 Magnesium 1.9 Active Medications Generic Name Dose Route Start Last Admin Trade Name Freq PRN Reason Stop Dose Admin Acetaminophen 650 mg 07/22/18 18:00 Tylenol - PO Q6H DELIA Lactated Ringer's 1,000 mls @ 75 mls/hr 07/22/18 12:53 07/22/18 14:00 Lactated Ringers Solution IV 0 mls ASDIR DELIA Administration Cefoxitin Sodium 2 gm/ 100 mls @ 200 mls/hr 07/22/18 17:30 Dextrose IVPB 07/22/18 17:59 ONCE ONE Protocol Ibuprofen 600 mg 07/22/18 15:00 Motrin - PO Q6H DELIA Ondansetron HCl 4 mg 07/22/18 12:53 07/22/18 14:28 Zofran Injection IVPUSH 4 mg Q6H PRN Administration NAUSEA ASSESSMENT/PLAN: Patient is a 42 y/o male with no past medical history and surgical history pertinent for appendectomy and hernia repair who presents with cholelithiasis #acute cholelithiasis - US: cholelithias, thickened gallbladder 4 mm, no evidence of pericholecystic fluid - patient going for cholecystectomy today -f/u surgery recs - morphine 4mg q4prn - zofran 4 mg q6h prn #glycosuria - no history of DM - HBA - f/u with PCP outpatient as appropriate F/E/N LR @100mls/hr replete electrolytes when needed NPO PPX: SCD's Problem List - Problems (1) Cholelithiasis Code(s): K80.20 - CALCULUS OF GALLBLADDER W/O CHOLECYSTITIS W/O OBSTRUCTION Qualifiers: Cholelithiasis location: other site Biliary obstruction: without biliary obstruction Qualified Code(s): K80.80 - Other cholelithiasis without obstruction Visit type - Emergency Visit Emergency Visit: Yes ED Registration Date: 07/21/18 Care time: The patient presented to the Emergency Department on the above date and was hospitalized for further evaluation of their emergent condition. - New Patient This patient is new to me today: No - Critical Care Critical Care patient: No
[2018-07-22] MEDS: IBUPROFEN 600 MG TABLET (FP) PO SCH ×2 (16:21→21:11)
[2018-07-22] MEDS ORDERED: CEFOXITIN SODIUM 2 GM in DEXTROSE 5%-WATER 100 ML IVPB ONE (17:30)
[2018-07-22] MEDS ORDERED: ACETAMINOPHEN 325 MG TABLET (FP) PO SCH (18:00)
--- NOTE | 2018-07-22 18:22 | PN ---
Teaching Attending Note Name of Resident: Rachael Rojas ATTENDING PHYSICIAN STATEMENT I saw and evaluated the patient. I reviewed the resident's note and discussed the case with the resident. I agree with the resident's findings and plan as documented. SUBJECTIVE: Patient denies abdominal pain, nausea. OBJECTIVE: Vital Signs Period Temp Pulse Resp BP Sys/Tariq Pulse Ox Last 24 Hr 97.9 F-99.0 F 64-94 10-20 108-139/57-79 97-100 HEART: S1S2, RRR LUNGS: Clear ABDOMEN: Obese, soft, non-tender, non-distended, normal BS EXTREMITIES: No edema Laboratory Results - last 24 hr 07/22/18 07/22/18 06:10 06:10 WBC 5.3 RBC 4.50 Hgb 13.7 Hct 42.1 MCV 93.7 MCH 30.4 MCHC 32.5 RDW 12.6 Plt Count 230 MPV 8.1 Sodium 142 Potassium 3.8 Chloride 106 Carbon Dioxide 25 Anion Gap 10 BUN 9 Creatinine 0.7 Creat Clearance w eGFR > 60 Random Glucose 76 Calcium 8.6 Phosphorus 3.2 Magnesium 1.9 Current Medications Generic Name Dose Route Start Last Admin Trade Name Freq PRN Reason Stop Dose Admin Acetaminophen 650 mg 07/22/18 18:00 Tylenol - PO Q6H DELIA Lactated Ringer's 1,000 mls @ 75 mls/hr 07/22/18 12:53 07/22/18 16:19 Lactated Ringers Solution IV 75 mls/hr ASDIR DELIA Administration Ibuprofen 600 mg 07/22/18 15:00 07/22/18 16:21 Motrin - PO Not Given Q6H DELIA Ondansetron HCl 4 mg 07/22/18 12:53 07/22/18 14:28 Zofran Injection IVPUSH 4 mg Q6H PRN Administration NAUSEA ASSESSMENT AND PLAN: This is a 42 year old man with no significant history who presented to the ED with RUQ abdominal pain. 1. Biliary colic - Continue NPO, IV fluid - Plan for lap jake today 2. Glucosuria - HgbA1c is 5.9 - Fasting glucose 92 this am
[2018-07-22] MEDS: ACETAMINOPHEN 325 MG TABLET (FP) PO SCH (18:49)
[2018-07-23] MEDS: ACETAMINOPHEN 325 MG TABLET (FP) PO SCH ×3 (00:58→12:58)
[2018-07-23] MEDS: IBUPROFEN 600 MG TABLET (FP) PO SCH ×2 (03:39→09:32)
--- NOTE | 2018-07-23 10:37 | PN ---
Progress Note, Physician History of Present Illness: s/p lap jake for symptomatic cholelithiasis, impacted stone feeling well pain much better, just from incisions now ambulated to [facility], seen there, walked back to room for exam voiding, nuno po, on Tyl/Ibu alternating - Current Medication List Current Medications: Active Medications Acetaminophen (Tylenol -) 650 mg PO Q6H [facility] Last Admin: 07/23/18 06:09 Dose: 650 mg Lactated Ringer's (Lactated Ringers Solution) 1,000 mls @ 75 mls/hr IV ASDIR [facility] Last Admin: 07/22/18 16:19 Dose: 75 mls/hr Ibuprofen (Motrin -) 600 mg PO Q6H [facility] Last Admin: 07/23/18 09:32 Dose: 600 mg Ondansetron HCl (Zofran Injection) 4 mg IVPUSH Q6H PRN PRN Reason: NAUSEA Last Admin: 07/22/18 14:28 Dose: 4 mg - Objective Vital Signs: Vital Signs Temperature 98.2 F 07/23/18 10:00 Pulse Rate 73 07/23/18 10:00 Respiratory Rate 18 07/23/18 10:00 Blood Pressure 131/86 07/23/18 10:00 O2 Sat by Pulse Oximetry (%) 100 07/23/18 09:00 Constitutional: Yes: Well Nourished, No Distress, Calm Eyes: Yes: Conjunctiva Clear, EOM Intact. No: Sclera Icterus HENT: Yes: Atraumatic, Normocephalic Gastrointestinal: Yes: Soft, Distention (some), Tenderness (RLQ, some epigastric , incisional at umbilicus and subxiphoid), Tenderness, Epigastrium. No: Tenderness, Rebound Musculoskeletal: No: Joint Stiffness, Joint Swelling Extremities: No: Cool, Cyanosis Integumentary: Yes: Incision (x4 dressed). No: Jaundice, Rash Wound/Incision: Yes: Steri Strips (under dressings), Dressing Dry and Intact ( x4 with small dried bloodstain on RUQ site). No: Dressing Removed Neurological: Yes: Alert, Oriented. No: Unsteady Gait Labs: no new labs Problem List - Problems (1) Calculus of gallbladder without cholecystitis without obstruction Assessment/Plan: POD1 s/p laparoscopic cholecystectomy doing well completed abx ambulated back from [facility] tolerating diet, eating light pain controlled with nonnarcotics po voiding, passed gas, no BM yet ok for d/c home with f/u in 2 wks instructions in d/c plan no Rx needed Code(s): K80.20 - CALCULUS OF GALLBLADDER W/O CHOLECYSTITIS W/O OBSTRUCTION (2) RUQ pain Code(s): R10.11 - RIGHT UPPER QUADRANT PAIN (3) Nausea alone Code(s): R11.0 - NAUSEA
[2018-07-23] MEDS: LACTATED RINGERS SOLUTION 1,000 ML IV SCH (12:59)
--- NOTE | 2018-07-23 13:11 | PN ---
Teaching Attending Note Name of Resident: Rachael Rojas ATTENDING PHYSICIAN STATEMENT I saw and evaluated the patient. I reviewed the resident's note and discussed the case with the resident. I agree with the resident's findings and plan as documented. SUBJECTIVE: Patient has no complaints. Tolerating diet. (+) flatus. OBJECTIVE: Vital Signs Period Temp Pulse Resp BP Sys/Tariq Pulse Ox Last 24 Hr 97.8 F-98.6 F 62-89 11-20 106-131/63-86 99-100 HEART: S1S2, RRR LUNGS: Clear ABDOMEN: Obese, soft, non-distended, mild incisional tenderness, normal BS EXTREMITIES: No edema Current Medications Generic Name Dose Route Start Last Admin Trade Name Freq PRN Reason Stop Dose Admin Acetaminophen 650 mg 07/22/18 18:00 07/23/18 12:58 Tylenol - PO 650 mg Q6H DELIA Administration Lactated Ringer's 1,000 mls @ 75 mls/hr 07/22/18 12:53 07/23/18 12:59 Lactated Ringers Solution IV Not Given ASDIR DELIA Ibuprofen 600 mg 07/22/18 15:00 07/23/18 09:32 Motrin - PO 600 mg Q6H DELIA Administration Ondansetron HCl 4 mg 07/22/18 12:53 07/22/18 14:28 Zofran Injection IVPUSH 4 mg Q6H PRN Administration NAUSEA ASSESSMENT AND PLAN: This is a 42 year old man with no significant history who presented to the ED with RUQ abdominal pain. 1. Biliary colic - s/p laparascopic cholecystectomy 07/22 - Tolerating diet - Ok for discharge home 2. Glucosuria - No evidence for DM - HgbA1c is 5.9 - Fasting glucose 92 yesterday, 76 this am 3. Obesity with BMI 30.4
[2018-07-23 13:57] VITALS: BP 124/71; PULSE 74; TEMP 98.7
--- NOTE | 2018-07-23 15:09 | DS ---
Physical Exam: SUBJECTIVE: Patient seen and examined at bedside. no acute events overnight- patient states that he had slight pain overnight post-surgery however is feeling better. He rates the pain a 2/10. He had some slight nausea however he is now feeling better- he denies any CP/SOB/N'/V fevers or chillls. OBJECTIVE: Vital Signs Period Temp Pulse Resp BP Sys/Tariq Pulse Ox Last 24 Hr 97.8 F-98.7 F 62-89 18-20 106-131/64-86 100-100 PHYSICAL EXAM GENERAL: The patient is awake, alert, and fully oriented, in no acute distress. EYES:no scleral icterus NECK: no JVD, no lymphadenopathy LUNGS: CTA B/L; no rales, rhonchi or wheezing HEART: Regular rate and rhythm, S1, S2 without murmur, rub or gallop. ABDOMEN: Soft, slight RUQ tenderness upon palpation EXTREMITIES: 2+ pulses, warm, well-perfused, no edema. PSYCH: Normal mood, normal affect. SKIN: Warm, dry, normal turgor, no rashes or lesions noted. LABS Imaging: RUQ U/S- IMPRESSION: 1. Slightly thickened gallbladder with cholelithiasis. 2. Mild diffuse fatty infiltration of liver. Please see above discussion. HOSPITAL COURSE: Date of Admission:07/21/18 42 y/o male with no PMH presented to the ED with complaints of nausea/vomiting/ RUQ pain after having eaten a spicy,greasy meal. RUQ ultrasound was done which showed mild gallbladder thickening and cholelithiasis. Patient did not have a white count nor was he febrile upon admission. He was given zofran and morphine for pain/nausea and was seen by general surgery Dr. Aly- who performed a laparoscopic cholecystectomy on the patient the next day. Patient tolerated the surgery well and was stable enough for discharge. He was given strict discharge instructions to follow up with Dr Aly in 2 weeks. Date of Discharge: 07/23/18 Minutes to complete discharge: 39 Discharge Summary Reason For Visit: CHOLELITHIASIS Current Active Problems Calculus of gallbladder without cholecystitis without obstruction (Acute) Cholelithiasis (Acute) Nausea alone (Acute) RUQ pain (Acute) Condition: Good - Instructions Diet, Activity, Other Instructions: Postoperative instructions: You had a laparoscopic cholecystectomy on 07/22/[address] Tutu Aly of [facility]. Activity: Resume your usual activities gradually, but no heavy exertion or lifting more than 10-15 pounds for 1 month. Remove dressings 48 hours after surgery; sticky tapes underneath will fall off by themselves. You may shower daily starting then, just pat the incision areas dry. No bath or swimming until skin incisions have healed. Eat lightly at first, but advance to your usual diet as tolerated. Pain: For pain, you may use and alternate Tylenol 325mg(acetaminophen) 1-2 pills and/or ibuprofen 200 mg (1-3 pills) every 6 hours each as needed; this means that you can take one OR the other at 3-hour intervals. Take less as your pain decreases. Do not take more than 4000mg of acetaminophen in a day. Take medications as prescribed or indicated on the labeling. Follow-up: Call Dr. Aly's office at [phone] to make your postop appointment (Saturday in approximately 2 weeks after surgery). Clinic is held in the [facility] on the first floor of [facility]. Call the office if you have: * increasing pain not responsive to pain medication * fever of 101F or higher * vomiting * unusual or increasing bleeding or drainage from wounds * increasing redness or swelling at wound sites Also, you have been referred to a primary medical doctor; call for an appointment within 1-2 weeks. *if you begin to experience any chest pain, shortness of breath, nausea, vomiting or fevers please return to the emergency room immediately Referrals: [facility] [place] [Provider Group] - 1 Week Tutu Aly MD [Staff Physician] - 2 Weeks (must CALL OFFICE for appointment, time) Disposition: HOME - Home Medications Comprehensive Discharge Medication List: Ambulatory Orders NK [No Known Home Medication] 07/21/18 Problem List - Problems (1) Cholelithiasis Code(s): K80.20 - CALCULUS OF GALLBLADDER W/O CHOLECYSTITIS W/O OBSTRUCTION Qualifiers: Cholelithiasis location: other site Biliary obstruction: without biliary obstruction Qualified Code(s): K80.80 - Other cholelithiasis without obstruction This patient is new to me today: No Emergency Visit: Yes ED Registration Date: 07/21/18 Care time: The patient presented to the Emergency Department on the above date and was hospitalized for further evaluation of their emergent condition. Critical Care patient: No - Discharge Referral Referred to [facility] Med P.C.: No Physician Referral: Florian Chew MD ([facility])
--- NOTE | 2018-07-23 17:24 | PATH ---
Surgical Pathology Report Patient Name: ELANA GARCIA Med. Rec. #: [id number] /Age/Gender: 1975 (Age: 42) / M Account: [id number] Location: [facility] MED/SURG Taken: 07/22/2018 Received: 07/22/2018 Reported: 07/23/2018 Physicians: Jero Howell M.D. Specimen(s) Received GALLBLADDER Clinical History Symptomatic cholelithiasis/impacted stone Final Diagnosis GALLBLADDER, LAPAROSCOPIC CHOLECYSTECTOMY: ACUTE AND CHRONIC CHOLECYSTITIS, CHOLESTEROLOSIS, AND CHOLELITHIASIS. ONE BENIGN PERIDUCTAL LYMPH NODE (0/1). Electronically Signed Lissette Craig M.D. Gross Description Received in formalin, labeled "gallbladder," is a 7.8 x 3.5 x 2.7 cm. gallbladder with a 0.2 cm. in length portion of cystic duct attached. There is a 0.7 cm in greatest dimension periductal lymph node present. The outer surface is [place] and varies from smooth to shaggy. The lumen contains green, tenacious bile as well as 2 yellow, spherical, bosselated choleliths measuring 0.7 and 1.1 cm in greatest dimension. The mucosa is dark green, focally hyperemic and displays gold cholesterol stippling. The wall of the gallbladder averages 0.2 cm. in thickness. [employer] sections are submitted in one cassette. /07/22/2018 saudi07/22/2018
== END 2018-07-23 16:00 | disposition home or self-care (01) | DRG 419 ==
LOC: JER 22:35 → JERBED 07-21 03:37 → OBSVTOIN 07-21 04:49 → J7W 07-21 19:25
PROVIDERS: ADMIT Internal Medicine; ATTEND Internal Medicine
PROC: 0FT44ZZ Resection of Gallbladder, Percutaneous Endoscopic Approach (ICD-10-PCS; principal; 2018-07-22 14:30)
DX: K80.20 Calculus of gallbladder without cholecystitis without obstruction (principal); R81 Glycosuria; E66.9 Obesity, unspecified; Z68.30 Body mass index [BMI] 30.0-30.9, adult; K76.0 Fatty (change of) liver, not elsewhere classified
CPT/HCPCS: 36415; 71045-TC-FY; 76705-TC; 80048; 80053; 81003; 82550; 82553; 83036; 83690; 83735; 84100; 84484; 85025; 85027; 85610; 86850; 86900; 86901; 88304-TC; 93005; 93010; 94760; 99284-25; G0378; J0131; J7030